=== PATIENT | male | born 1985 | race African-American/Black ===

== ENCOUNTER 2018-05-16 19:29 | Emergency (ER) | payer SELFPAY ==
[2018-05-16] MEDS ORDERED: Ketorolac Tromethamine 30 MG/ML VIAL ONE (20:41)
== END 2018-05-16 21:46 | disposition home or self-care (01) ==
LOC: ERS 19:29
DX: M54.5 Low back pain (principal)
CPT/HCPCS: 87804; 96372; J1885

== ENCOUNTER 2018-06-25 22:16 | Emergency (ER) | payer SELFPAY ==
[2018-06-25 23:14] LABS: #Basophils 0.1 thou/uL (0.0-0.2); #Eosinphils 0.4 thou/uL (0.0-0.7); #Lymphocytes 2.1 thou/uL (1.20-3.40); #Monocytes 0.6 thou/uL (0.11-0.59); #Neutrophils 3.7 thou/uL (1.40-6.50); %Basophils 1.6 % (0.0-1.0); %Eosinophils 5.3 % (0.0-10.0); %Lymphocytes 30.9 % (21.0-51.0); %Monocytes 8.6 % (0.0-10.0); %Neutrophils 53.6 % (42.0-75.0); Hemoglobin 13.6 g/dL (14.0-18.0); Mean Corpuscular HGB CONC 32.3 g/dL (32.0-36.0); Mean Corpuscular Hemoglobin 27.6 pg (27.0-31.0); Mean Corpuscular Volume 85.6 fL (78.0-98.0); Platelet Count 223 thou/uL (130-400); RBC Distribution Width 12.5 % (11.5-14.5); Red Blood Cell (RBC) Count 4.91 mill/uL (4.70-6.10); White Blood Cell (WBC) Count 6.9 thou/uL (4.8-10.8)
[2018-06-25 23:41] LABS: ALT (SGPT) 49 U/L (8-55); AST (SGOT) 30 U/L (5-34); Albumin 3.7 g/dL (3.5-5.0); Alkaline Phosphatase 59 U/L (40-150); Anion Gap 10 mmol/L (10-20); BUN (Urea Nitrogen) 6 mg/dL (8.9-20.6); Bilirubin, Total 0.2 mg/dL (0.2-1.2); Calc. Creatinine Clearance 0 mL/min (70-130); Carbon Dioxide 26 mmol/L (22-29); Chloride 108 mmol/L (98-107); Estimated GFR-MDRD Greater than 90; Globulin 2.9 g/dL (2.4-3.5); Glucose 91 mg/dL (70-105); Potassium 3.7 mmol/L (3.5-5.1); Protein, Total 6.6 g/dL (6.0-8.3); Sodium 140 mmol/L (136-145)
--- NOTE | 2018-06-25 23:43 | RAD ---
RIGHT HAND THIRD DIGIT THREE VIEWS: 06/25/18 HISTORY: Cut glass four days ago. Evaluate for foreign body. COMPARISON: 08/26/02 FINDINGS: No fracture. No cortical irregularity or periosteal reaction. Joint spaces are preserved. No radiopaq ue foreign body. IMPRESSION: No fracture or radiopaque foreign body. POS: [facility]
[2018-06-26] MEDS ORDERED: Adacel (T-DAP) 0.5 ML SYRINGE ONE (00:40)
== END 2018-06-26 00:50 | disposition home or self-care (01) ==
LOC: ERS 22:16
DX: L03.011 Cellulitis of right finger (principal); J45.909 Unspecified asthma, uncomplicated; I10 Essential (primary) hypertension
CPT/HCPCS: 10060; 36415; 80053; 85025; 90471; 90715

== ENCOUNTER 2018-08-28 01:03 | Emergency (ER) | payer SELFPAY ==
[2018-08-28] MEDS ORDERED: Adacel (T-DAP) 0.5 ML SYRINGE ONE (02:18)
--- NOTE | 2018-08-28 04:16 | RAD ---
XR Foot Lt 3 View STANDARD HISTORY: Patient stepped on a nail. COMPARISON: None. FINDINGS: There are no signs of fracture. Small radiopaque densities on the plantar surface of the fo ot are felt to be on the skin surface. IMPRESSION: No bony findings.
== END 2018-08-28 02:55 | disposition home or self-care (01) ==
LOC: ERS 01:03
DX: B07.0 Plantar wart (principal); J45.909 Unspecified asthma, uncomplicated; I10 Essential (primary) hypertension; F17.210 Nicotine dependence, cigarettes, uncomplicated
CPT/HCPCS: 90471; 90715

== ENCOUNTER 2018-12-08 01:57 | Emergency (ER) | payer SELFPAY | END 2018-12-08 02:14 | disposition home or self-care (01) | LOC: ERS 01:57 | DX: K04.7 Periapical abscess without sinus (principal); I10 Essential (primary) hypertension; J45.909 Unspecified asthma, uncomplicated; F17.210 Nicotine dependence, cigarettes, uncomplicated; Z79.899 Other long term (current) drug therapy | CPT/HCPCS: 99282 ==

== ENCOUNTER 2019-10-26 08:47 | Emergency (ER) | payer SELFPAY ==
[2019-10-26] MEDS ORDERED: Adacel (T-DAP) 0.5 ML SYRINGE ONE (09:06)
== END 2019-10-26 09:45 | disposition home or self-care (01) ==
LOC: ERS 08:47
DX: S91.332A Puncture wound without foreign body, left foot, initial encounter (principal); I10 Essential (primary) hypertension; F17.210 Nicotine dependence, cigarettes, uncomplicated; Z79.899 Other long term (current) drug therapy; W22.8XXA Striking against or struck by other objects, initial encounter
CPT/HCPCS: 90715

== ENCOUNTER 2019-12-21 13:59 | Emergency (ER) | payer SELFPAY ==
[2019-12-21] MEDS ORDERED: Cyclobenzaprine 10 MG TAB ONE (14:35)
[2019-12-21] MEDS ORDERED: Ketorolac Tromethamine 30 MG/ML VIAL ONE (14:35)
--- NOTE | 2019-12-21 15:24 | RAD ---
Exam: 3 views thoracic spine HISTORY: Worsening pain. FINDINGS: AP, lateral and swimmer's view demonstrate 12 thoracic type vertebra. Vertebral body height s are maintained. No fractures or malalignment. Preserved disc space heights IMPRESSION: No radiographic abnormality.
--- NOTE | 2019-12-21 15:25 | RAD ---
Exam: 3 views of lumbar spine HISTORY: Worsening back pain FINDINGS: 5 lumbar type vertebra. Lumbar spine vertebral body height is maintained. No fracture. Disc space heights are preserved. No spondylolisthesis or spondylolysis. Straightening of lumbar lordosis is presumed to be positional Visualized sacrum and bony pelvis are intact IMPRESSION: No radiographic abnormality.
== END 2019-12-21 15:46 | disposition home or self-care (01) ==
LOC: ERS 13:59
DX: M54.6 Pain in thoracic spine (principal); J45.909 Unspecified asthma, uncomplicated; I10 Essential (primary) hypertension; F17.210 Nicotine dependence, cigarettes, uncomplicated
CPT/HCPCS: 72072; 72100; 96372; J1885